=== PATIENT | female | born 2000 | race Caucasian/White ===

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

== ENCOUNTER 2022-04-05 15:52 | Outpatient (REF) | payer MEDICAID, SELFPAY | END 2022-04-05 15:53 | disposition home or self-care (01) | LOC: NCHCN 15:52 | PROVIDERS: Visit Provider Nurse Practitioner Family | DX: R31.9 Hematuria, unspecified (principal) | CPT/HCPCS: 87086 ==

== ENCOUNTER 2022-05-27 15:50 | Outpatient (REF) | payer MEDICAID, SELFPAY | END 2022-05-27 15:51 | disposition home or self-care (01) | LOC: NCHCN 15:50 | PROVIDERS: Visit Provider Nurse Practitioner Family | DX: R35.0 Frequency of micturition (principal) | CPT/HCPCS: 87086 ==

== ENCOUNTER 2022-07-03 18:08 | Emergency (ER) | payer MEDICAID, SELFPAY ==
[2022-07-03 18:13] VITALS: BP 117/77; PULSE 79; RESP 14; TEMP 36.6; O2SAT 98
[2022-07-03] MEDS: Fluorescein STRIPS 100/BOX 1 MG OP (18:30)
[2022-07-03] MEDS: Erythromycin Ophth Oint 3.5 GM TUBE OP (18:30)
[2022-07-03] MEDS: Balanced Salt Solution 15 ML BTL OP (18:30)
[2022-07-03 18:38] VITALS: BP 118/72; PULSE 80; RESP 14; O2SAT 98
--- NOTE | 2022-07-03 18:38 | W.ED.GENAD ---
Discharge Plan Disposition Patient Disposition: Home Condition: Improving Discharge Details Clinical Impression: Abrasion of right cornea Primary Care Provider: Mica Galloway ED Provider: Don Casanova Home Meds and New Rx's Prescriptions: Continued Nexplanon 68 mg implant 1 implant SBD ONCE Rx Instructions: as a single dose Women's Multivitamin 18 mg-400 mcg- 500 mg-50 mcg tablet 1 tab PO DAILY ibuprofen 400 MG tablet 1 tab PO Q8H PRN Qty: 90 cholecalciferol (vitamin D3) 125 mcg (5,000 unit) capsule 5,000 unit PO DAILY Qty: 90 2RF cetirizine [Zyrtec] 10 mg tablet 10 mg PO DAILY Qty: 60 3RF cyproheptadine 4 mg tablet 4 mg PO DAILY Qty: 30 0RF Discharge Instructions Instructions: Corneal Abrasion (ED) Additional Instructions: Erythromycin to both eyes 4-5 times daily for the next 5 days. May apply cool compress to area to reduce discomfort. Avoid further use of multidose vials of eyedrops, and avoid use of eyedrops such as Visine that reduce redness as they can cause a rebound effect. Tylenol and ibuprofen as needed for pain. You have a curvilinear corneal abrasion of the right lower cornea outside your axis of vision. This should continue to heal quickly with the use of the erythromycin and cold compresses at home. Return for any acute concerns. Medical Decision Making 21-year-old female presents from home stating she has had eye irritation since having false eyelashes placed. She particularly feels irritation in the right lower eye. No change to vision, she is otherwise been well. On exam the patient has a curvilinear corneal abrasion of the right inferior cornea, outside the axis of vision. Negative Humphrey's sign. Left eye unremarkable. This is consistent with corneal abrasion from the pad that was placed on her lower eyelid during the placement of the false eyelashes. We will treat with erythromycin ointment and conservative measures at home. The patient is stable and appropriate for discharge. HPI General Mode of arrival: ambulatory. Date/Time Provider Initiated Documentation: 07/03/22 18:08. Limitations to Documentation: no limitations. Information obtained by: patient. History of Present Illness 21 year old F presents to the emergency department with the chief complaint of Irritated eyes, right greater than left, described as moderate, and is localized to the eyes, left and right. Patient reports no radiation. Patient started experiencing this day(s) and it has been constant. No relieving factors improve symptom(s), No exacerbating factors reported . Patient notes denies fever/chills, headaches and nausea/vomiting. Patient did receive the following treatments prior to arrival, none Related Data Home Medications Medication Instructions Recorded Confirmed ibuprofen 400 mg tablet 1 tab PO Q8H PRN #90 tabs 06/28/16 07/03/22 etonogestrel 68 mg subdermal 1 implant subdermal ONCE 11/19/19 07/03/22 implant (Nexplanon) [id number] 18 mg-FA 400 1 tab PO DAILY 11/19/19 07/03/22 mcg-calcium 500 mg-vit K 50 mcg tablet (Women's Multivitamin) cholecalciferol (vitamin D3) 125 5,000 unit PO DAILY #90 caps 11/16/20 07/03/22 mcg (5,000 unit) capsule cetirizine 10 mg tablet (Zyrtec) 10 mg PO DAILY #60 tab-caps 07/14/21 07/03/22 cyproheptadine 4 mg tablet 4 mg PO DAILY #30 tabs 08/02/21 07/03/22 Previous Rx's Medication Instructions Recorded cholecalciferol (vitamin D3) 125 5,000 unit PO DAILY #90 caps 11/16/20 mcg (5,000 unit) capsule cetirizine 10 mg tablet (Zyrtec) 10 mg PO DAILY #60 tab-caps 07/14/21 cyproheptadine 4 mg tablet 4 mg PO DAILY #30 tabs 08/02/21 Allergies Allergy/AdvReac Type Severity Reaction Status Date / Time atomoxetine HCl AdvReac Intermediate agressive Verified 07/03/22 18:28 [From [facility]] General Stated Complaint: EyeProblem GABRIELLA: 4 Review of Systems Narrative: No change to vision. No other injury. Otherwise healthy PFSH All Active Problems (Updated 07/03/22 @ 18:41 by Don Casanova MD) Abrasion of right cornea (Acute) COVID-19 (Acute 03/09/21) Hypertrophic scar (Acute) Keloid (Acute) inside of left nare where nose ring was placed Vitamin D deficiency (Acute) 18.9 06/26 rx vit d 3 5000 units daily Routine child health exam (Acute 08/15/12) Learning problem (Acute 04/25/16) IEP Attention deficit hyperactivity disorder (Acute 08/15/12) Medical History Attention deficit hyperactivity disorder Oppositional disorder of childhood or adolescence Problems with learning IEP Surgical History Acute appendicitis Appendectomy (08/13/17) Family History Mother , elavil overdose Substance abuse Mental disorder Father Substance abuse Heart disease Neoplasm Grandparent Diabetes Hearing loss childhood Essential hypertension Heart disease Social History Smoking/Tobacco Use Status: Never Second Hand Exposure: No Smoking risk assessment performed?: Yes Alcohol Intake: never Drug use: Never Substance use type: does not use Household members: family Education Level: high school Details: Just graduated at [employer], contemplating nursing school, wants to work Pets and animals: No Do you feel safe in your relationship?: Yes Exam Narrative Exam Narrative: GEN: awake, alert, oriented 3. Pleasant, well groomed, interactive. HEAD: Normocephalic, atraumatic ENT: Mucous membranes moist, oropharynx unremarkable, External ear exam unremarkable EYES: PERRL, EOMI, slight conjunctival injection left, right lower conjunctiva is injected. See nursing note for visual acuity. Under fluorescein exam there is corneal abrasion right eye inferior, negative Humphrey sign, no foreign object. Left eye fluorescein exam unremarkable. NECK: Full ROM, no SAVAGE, no menigismus CHEST/RESP no respiratory distress Neuro: Grossly normal neurologic exam, conversant, interactive. Psych: Speech fluent, thoughts congruent, affect normal Course Vital Signs Vital signs: Vital Signs Temperature 36.6 C 07/03/22 18:13 Pulse 79 07/03/22 18:13 Respiratory Rate 14 07/03/22 18:13 Blood Pressure 117/77 07/03/22 18:13 Pulse Oximetry 98 07/03/22 18:13 Temperature 36.6 C 07/03/22 18:13 Temperature Source Tympanic 07/03/22 18:13 Pulse 79 07/03/22 18:13 Respiratory Rate 14 07/03/22 18:13 Respiratory Effort Normal, Non-Labored 07/03/22 18:25 Blood Pressure 117/77 07/03/22 18:13 Blood Pressure Position Sitting 07/03/22 18:13 Pulse Oximetry 98 07/03/22 18:13 Oxygen Delivery Method Room Air 07/03/22 18:13 Oxygen Flow Rate 0 07/03/22 18:13 Pain Level 3 07/03/22 18:13
== END 2022-07-03 18:47 | disposition home or self-care (01) ==
PROVIDERS: Emergency Provider Emergency Medicine; PCP Nurse Practitioner Family
DX: S05.01XA Injury of conjunctiva and corneal abrasion without foreign body, right eye, initial encounter (principal); X58.XXXA Exposure to other specified factors, initial encounter
CPT/HCPCS: 99283

== ENCOUNTER 2023-04-06 15:51 | Outpatient (REF) | payer BC, SELFPAY ==
[2023-04-06 18:26] LABS: Abs Immature Grans 0.01 10^3/uL (0.0-0.06); Absolute Basophil Count 0.05 10^3/uL (0.0-0.2); Absolute Eosinophil Count 0.13 10^3/uL (0.0-0.7); Absolute Lymphocyte Count 2.47 10^3/uL (1.2-3.4); Absolute Monocyte Count 0.49 10^3/uL (0.1-0.8); Absolute Neutrophil Count 5.22 10^3/uL (1.2-6.7); Basophils % 0.6; Eosinophils % 1.6; HGB 14.7 g/dL (11.2-15.7); Immature Grans % 0.1; Lymphocytes % 29.5; MCH 29.6 pg (27.0-33.0); MCV 85 fL (80-95); Monocytes % 5.9; Neutrophils % 62.3; Platelet Count 311 10^3/uL (130-400); RBC 4.97 10^6/uL (3.93-5.22); RDW 12.4 % (11.7-14.6); RDW-SD 37.6 fL; WBC 8.37 10^3/uL (4.4-10.8)
[2023-04-06 19:09] LABS: Vitamin D 25 Total 40.9 ng/mL (30-100)
[2023-04-06 19:12] LABS: ALT 25 U/L (14-59); AST 22 U/L (15-37); Albumin 3.7 g/dL (3.4-5.0); Alkaline Phosphatase 76 U/L (46-116); Anion Gap 7.4 mmol/L (3-11); BUN 18 mg/dL (7-18); Bilirubin, Total 0.2 mg/dL (0.2-1.0); CO2 26.6 mmol/L (21.0-32.0); CREATININE 0.9 mg/dL (0.55-1.02); Calcium 9.4 mg/dL (8.5-10.1); Chloride 104 mmol/L (98-107); Estimated GFR 93.86 (mL/min/1.73m2); Folate 9.3 ng/mL (8.6-20.0); Glucose 92 mg/dL (74-106); Sodium 138 mmol/L (136-145); Total Protein 7.7 g/dL (6.4-8.2); Vitamin B12 490 pg/mL (193-986)
== END 2023-04-06 15:52 | disposition home or self-care (01) ==
LOC: NCHCN 15:51
PROVIDERS: PCP Nurse Practitioner Family; Visit Provider Nurse Practitioner Family
DX: R53.83 Other fatigue (principal)
CPT/HCPCS: 80053; 82306; 82607; 82746; 85025

== ENCOUNTER 2023-11-06 16:45 | Outpatient (REF) | payer BC, SELFPAY ==
[2023-11-06 19:08] LABS: Bilirubin Negative (Negative); Blood Negative (Negative); Clarity Clear (Clear); Glucose Negative (Negative); Ketones Negative (Negative); Leukocyte Esterase Moderate (Negative); Nitrite Negative (Negative); Specific Gravity 1.015 (1.005-1.025); Urobilinogen 0.2 mg/dL (Up to 0.2); pH 6.5 (5-8)
[2023-11-06 19:27] LABS: Bacteria Few HPF (Negative); C & S Indicated? Yes; Casts Negative LPF (Negative); Crystals Negative HPF (Negative); Epithelial Cells Rare HPF (Negative); Mucus Negative (Negative); RBC 0-2 HPF (0-2); WBC 20-50 HPF (0-5)
== END 2023-11-06 16:46 | disposition home or self-care (01) ==
LOC: NCHCN 16:45
PROVIDERS: Visit Provider Nurse Practitioner Family
DX: R39.89 Other symptoms and signs involving the genitourinary system (principal); R82.998 Other abnormal findings in urine
CPT/HCPCS: 87077; 81003; 81015; 87086; 87186

== ENCOUNTER 2023-11-10 09:35 | Emergency (ER) | payer BC, SELFPAY ==
[2023-11-10 09:45] VITALS: BP 113/80; PULSE 95; RESP 20; TEMP 36.3; O2SAT 97
--- NOTE | 2023-11-10 10:46 | ED.GENADUL_ITS ---
Discharge Plan Disposition Patient Disposition: Home Condition: Stable Discharge Details Clinical Impression: Bacterial vaginitis, Urinary tract infection Primary Care Provider: Unknown,Unknown ED Provider: José Luis Du Home Meds and New Rx's Prescriptions: New cefpodoxime 200 mg tablet 200 mg PO BID 10 Days Qty: 20 0RF Rx Instructions: must administer with a meal/food Continued Nexplanon 68 mg implant 1 implant SBD ONCE Rx Instructions: as a single dose Women's Multivitamin 18 mg-400 mcg- 500 mg-50 mcg tablet 1 tab PO DAILY ibuprofen 400 MG tablet 1 tab PO Q8H PRN Qty: 90 cholecalciferol (vitamin D3) 125 mcg (5,000 unit) capsule 5,000 unit PO DAILY Qty: 90 2RF cetirizine [Zyrtec] 10 mg tablet 10 mg PO DAILY Qty: 60 3RF cyproheptadine 4 mg tablet 4 mg PO DAILY Qty: 30 0RF nitrofurantoin 100 mg capsule 100 mg PO BID Rx Instructions: must administer with a meal/food Probiotic 3 billion cell capsule 3,000 mmu cells PO DAILY Rx Instructions: administer with a meal Discharge Instructions Instructions: Urinary tract infections in adults, Cefpodoxime, Bacterial Vaginosis ED Additional Instructions: You were seen in the emergency department for your continued dysuria and discomfort with urination. Your urine shows that you still have a UTI. One of your vaginal swab showed bacterial vaginosis, we treated this with a one-time pill of metronidazole here in the emergency department. I do recommend that you fill the antibiotics that I have sent for you called cefpodoxime to continue to treat UTI as you could have 2 different infections. We covered you for other sexually transmitted infections empirically with one-time treatment here in the emergency department, I have sent out HSV testing though your labial lesion does not appear to be herpetic in nature. I have sent out a syphilis test as well as HIV testing. Please return to the ED for severe increase in pain, flank pain with fever and nausea and weakness, increasing discharge, severe pelvic pain, vaginal bleeding not during menstrual cycle. Referrals: [facility] [Provider Group] Discharge Data Discharge Date/Time-TO BE ENTERED AT DEPARTURE: 11/10/23 14:40 HPI General Date/Time Provider Initiated Documentation: 11/10/23 09:52 . HPI Narrative: 23 year-old female presents to ED today by POV/ambulating with a chief complaint of dysuria, clear vaginal discharge- diagnosed with UTI last week- tried cephalexin but was switched to macrobid for staph saphrophyiticus UTI- not improving, worsening flank pain with onset over the past week-week and a half. Patient is sexually active with two partners. Quality described as clear non- foul smelling discharge, discomfort and burning with urination, flank pain, no radiation to fever, decrease in urine output, nausea/vomiting, tachycardia, vaginal bleeding. Severity is described as moderate. Palliating factors include multiple ABX without relief. Provoking factors include nothing specific. Patient not anticoagulated. Related Data Home Medications ?Medication ?Instructions ?Recorded ?Confirmed ibuprofen 400 mg tablet 1 tab PO Q8H PRN #90 tabs 06/28/16 11/10/23 etonogestrel 68 mg subdermal 1 implant subdermal ONCE 11/19/19 11/10/23 implant (Nexplanon) [id number] 18 mg-FA 400 1 tab PO DAILY 11/19/19 11/10/23 mcg-calcium 500 mg-vit K 50 mcg tablet (Women's Multivitamin) cholecalciferol (vitamin D3) 125 5,000 unit PO DAILY #90 caps 11/16/20 11/10/23 mcg (5,000 unit) capsule cetirizine 10 mg tablet (Zyrtec) 10 mg PO DAILY #60 tab-caps 07/14/21 11/10/23 cyproheptadine 4 mg tablet 4 mg PO DAILY #30 tabs 08/02/21 11/10/23 cefpodoxime 200 mg tablet 200 mg PO BID UTI 10 days #20 tabs 11/10/23 lactobacillus combination no.4 3 3,000 mmu cells PO DAILY 11/10/23 11/10/23 billion cell capsule (Probiotic) nitrofurantoin 100 mg capsule 100 mg PO BID 11/10/23 11/10/23 Previous Rx's ?Medication ?Instructions ?Recorded cholecalciferol (vitamin D3) 125 5,000 unit PO DAILY #90 caps 11/16/20 mcg (5,000 unit) capsule cetirizine 10 mg tablet (Zyrtec) 10 mg PO DAILY #60 tab-caps 07/14/21 cyproheptadine 4 mg tablet 4 mg PO DAILY #30 tabs 08/02/21 cefpodoxime 200 mg tablet 200 mg PO BID UTI 10 days #20 tabs 11/10/23 Allergies Allergy/AdvReac Type Severity Reaction Status Date / Time atomoxetine HCl (From AdvReac Intermediate agressive Verified 11/10/23 09:49 Strattera) General Stated Complaint: Urinary GABRIELLA: 3 Review of Systems All systems reviewed & are unremarkable except as noted in HPI and below Exam Narrative Exam Narrative: GENERAL APPEARANCE: Well-nourished, non-toxic, awake and alert, atraumatic, no acute distress. SKIN: Warm, pink, dry, intact, without rashes/lesions/ulcerations. HEAD: Normocephalic, atraumatic, normal hair distribution for gender/age. EYES: Normal conjunctiva, no exudates on lids/lashes. ENT: Nares patent, no circumoral cyanosis, no facial swelling NECK: Supple, trachea midline, painless cervical ROM. LUNGS/CHEST: Lungs CTA bilaterally, non-labored respirations, normal A/P diameter, symmetrical expansion, no chest wall deformity HEART (CV/PV): Regular rate and rhythm without murmur, no peripheral edema, no JVD. ABDOMEN: Soft, non-distended, no guarding, mild lower abdominal discomfort - pelvic exam deferred by patient preference. MSK: Normal ROM, no swelling/deformity to bilateral UEs or LEs, moving all extremities without weakness, no cyanosis, spine midline without tenderness, normal curvature. NEURO: Mental Status AAOx4 - alert to person, place, time, events No facial droop, no forehead involvement. Motor: No focal weakness - strength 5/5 in bilateral UEs and LEs, proximal and distal, symmetric. Sensory: sensation intact to light touch globally. Gait normal: patient ambulated without ataxia into ED room. PSYCH: euthymic, cooperative, pleasant, appropriate speech Course Vital Signs Vital signs: Vital Signs Temperature 36.3 C L 11/10/23 09:45 Pulse 95 H 11/10/23 09:45 Respiratory Rate 20 11/10/23 09:45 Blood Pressure 113/80 11/10/23 09:45 Pulse Oximetry 97 11/10/23 09:45 Temperature 36.3 C L 11/10/23 09:45 Temperature Source Skin 11/10/23 09:45 Pulse 95 H 11/10/23 09:45 Respiratory Rate 20 11/10/23 09:45 Blood Pressure 113/80 11/10/23 09:45 Blood Pressure Position Sitting 11/10/23 09:45 Pulse Oximetry 97 11/10/23 09:45 Oxygen Delivery Method Room Air 11/10/23 09:45 Oxygen Flow Rate 0 11/10/23 09:45 Medical Decision Making This dictation utilizes [id number] dictation software and may contain unedited grammatical errors. 23 year-old female presents to ED today by POV/ambulating with a chief complaint of dysuria, clear vaginal discharge- diagnosed with UTI last week- tried cephalexin but was switched to macrobid for staph saphrophyiticus UTI- not improving, worsening flank pain with onset over the past week-week and a half. Patient is sexually active with two partners. Quality described as clear non- foul smelling discharge, discomfort and burning with urination, flank pain, no radiation to fever, decrease in urine output, nausea/vomiting, tachycardia, vaginal bleeding. Severity is described as moderate. Palliating factors include multiple ABX without relief. Provoking factors include nothing specific. Patients' medical history: Noncontributory. Family and social history: Noncontributory. Pertinent exam findings / vital signs include mild lower abdominal tenderness, otherwise unremarkable exam, benign cardiopulmonary status. Differential / pathologies of concern include STI, vaginitis, UTI, pyelonephritis. Diagnostic studies of: -UA, Vag pathogen Screen, NG/GC (send-out), HIV Rapid Ab, RPR (send-out), HSV PCR (send-out). -vag path shows BV, UA shows UTI still persistent- will cover for pyelo Interventions of: -empiric one-time STD treatment of IM Ceftriaxone, single dose azith and metronidazole. ED Course/Assessment/Plan: Counseled the patient on possibility of STI as she has multiple sex partners, discussed one-time empiric treatment for STDs which the patient opted for, this will cover patient's BV with likely high-dose metronidazole, I did start her on cefpodoxime going forward as she has failed 2 antibiotics for her UTI and has flank pain covering for pyelonephritis. Stressed strict return criteria for any worsening flank pain especially fever, nausea or weakness or other systemic symptoms. Findings not consistent with sepsis, acute emergent abdominal pathology. Disposition of bacterial vaginitis, urinary tract infection. Patient verbalized understanding of the plan and return to ED criteria and engaged in shared decision making. Medical Records Medical records reviewed: Yes I reviewed the patient's medical records. Lab Data Lab results reviewed: Yes I reviewed the patient's lab results. Labs: 11/10/23 12:40 Vaginal Vaginitis Screen - Final Laboratory Tests Range/Units 11/10/23 11/10/23 10:22 12:24 Urine Color (Yellow) Dark Yellow Urine Clarity (Clear) Clear Urine pH (5-8) 6.0 Ur Specific [place] (1.005-1.025) 1.025 Urine Protein (Neg-Trace) mg/dL Trace Urine Ketones (Negative) mg/dL 80 H Urine Blood (Negative) Negative Urine Nitrite (Negative) Positive H Urine Bilirubin (Negative) Small H Urine Urobilinogen (Up to 0.2) mg/dL 1.0 H Ur Leukocyte Esterase (Negative) Negative Urine RBC (0-2) HPF Negative Urine WBC (0-5) HPF 3-5 Ur Epithelial Cells (Negative) HPF Rare Urine Crystals (Negative) HPF Negative Urine Bacteria (Negative) HPF Few Urine Casts (Negative) LPF Negative Urine Mucus (Negative) Moderate Urine Other (Negative) Negative Ur Culture Indicated? No Urine Glucose (Negative) mg/dL Negative HIV 1&2 Ag/Ab, 4th Gen Cancelled HIV 1&2 Antibody Rapid Cancelled Quality:SDOH Health Related Social Needs: No Data to Display PFSH All Active Problems (Updated 11/11/23 @ 23:26 by IZABELA Sosa) Fever (Acute) Urinary tract infection (Acute) Bacterial vaginitis (Acute) COVID-19 (Acute 03/09/21) Hypertrophic scar (Acute) Keloid (Acute) inside of left nare where nose ring was placed Vitamin D deficiency (Acute) 18.9 06/26 rx vit d 3 5000 units daily Routine child health exam (Acute 08/15/12) Learning problem (Acute 04/25/16) IEP Attention deficit hyperactivity disorder (Acute 08/15/12) Medical History Attention deficit hyperactivity disorder Oppositional disorder of childhood or adolescence Problems with learning IEP Surgical History Acute appendicitis Appendectomy (08/13/17) Family History Mother , elavil overdose Substance abuse Mental disorder Father Substance abuse Heart disease Neoplasm Grandparent Diabetes Hearing loss childhood Essential hypertension Heart disease Social History Smoking/Tobacco Use Status: Never Second Hand Exposure: No Smoking risk assessment performed?: Yes Alcohol Intake: never Drug use: Never Substance use type: does not use Household members: family Education Level: high school Details: Just graduated at [employer], contemplating nursing school, wants to work Pets and animals: No Do you feel safe in your relationship?: Yes
[2023-11-10 11:16] VITALS: BP 108/75; PULSE 89; RESP 18; TEMP 36.8; O2SAT 98
[2023-11-10 12:25] VITALS: BP 120/69; PULSE 102; RESP 16; TEMP 36.8; O2SAT 98
[2023-11-10 12:59] LABS: Bilirubin Small (Negative); Blood Negative (Negative); Clarity Clear (Clear); Glucose Negative (Negative); Ketones 80 mg/dL (Negative); Leukocyte Esterase Negative (Negative); Nitrite Positive (Negative); Specific Gravity 1.025 (1.005-1.025)
[2023-11-10 13:14] LABS: Bacteria Few HPF (Negative); C & S Indicated? No; Casts Negative LPF (Negative); Crystals Negative HPF (Negative); Epithelial Cells Rare HPF (Negative); Mucus Moderate (Negative); Other Cells Negative (Negative); RBC Negative HPF (0-2)
[2023-11-10] MEDS: metroNIDAZOLE 500 MG TAB 2000 MG PO (14:00)
[2023-11-10] MEDS: cefTRIAXone 500 MG VIAL IM (14:00)
[2023-11-10] MEDS: Azithromycin 250 MG TAB 1000 MG PO (14:00)
[2023-11-10 14:32] VITALS: BP 120/69; PULSE 102; RESP 16; TEMP 36.8; O2SAT 98
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
[2023-11-12 09:20] LABS: HIV-1/2 Ag & Ab Screen Negative (Negative)
[2023-11-13 12:09] LABS: Chlamydia Result Negative (Negative); GC Result Negative (Negative)
[2023-11-13 13:48] LABS: Syphilis Serology (RPR) Negative (Negative)
[2023-11-13 21:17] LABS: HSV 1 PCR, B Negative (Negative); HSV 2 PCR, B Negative (Negative)
== END 2023-11-10 14:40 | disposition home or self-care (01) ==
PROVIDERS: Emergency Provider Physician Assistant
DX: N39.0 Urinary tract infection, site not specified (principal); N76.0 Acute vaginitis
CPT/HCPCS: 36415; 87389; 87491; 87529; 87591; 96372; 99284; 81003; 81015; 86592; 87480; 87510; 87660; 99283; J0696

== ENCOUNTER 2023-11-11 19:56 | Emergency (ER) | payer BC, SELFPAY ==
[2023-11-11 20:05] VITALS: BP 130/81; PULSE 120; RESP 14; TEMP 36.9; O2SAT 98
[2023-11-11 20:54] VITALS: BP 124/78; PULSE 118; TEMP 36.3; O2SAT 98
--- NOTE | 2023-11-11 21:00 | DI.RAD_ITS ---
Exam(s) XR CHEST 2V PA LATERAL EXAM: XR CHEST 2V PA LATERAL CLINICAL HISTORY: fever TECHNIQUE: 2D digital imaging was performed. Two views. COMPARISON: No exams were available for comparison FINDINGS: HEART: Normal size. Aorta: Not dilated. PULMONARY VASCULATURE: Normal. MEDIASTINUM: Unremarkable. LUNGS: Clear. PLEURAL SPACE: No pleural effusion or pneumothorax. BONE:Unremarkable for age. SOFT TISSUES: Unremarkable. IMPRESSION: No acute abnormality. DATA REPOSITORY: RADIATION DOSE DELIVERED:
--- NOTE | 2023-11-11 21:07 | DI.CT_ITS ---
Exam(s) CT ABDOMEN PELVIS W EXAM: CT ABDOMEN PELVIS W CLINICAL HISTORY: dyuria, persistent fever. TECHNIQUE: Imaging Protocol: Axial computed tomography images with coronal and sagittal reformatted images were created and reviewed CONTRAST MATERIAL: Intravenous: Omnipaque 350 Contrast volume:100 ml Oral: no COMPARISON: CT ABD PELVIS WITH CONTRAST from 08/13/2017 FINDINGS: ABDOMEN and PELVIS: Lung Bases: No acute findings. Liver: Normal density. No suspicious mass. Gallbladder and biliary tract: Somewhat contracted. Not well evaluated. No wall thickening. No mounika iary dilation. Pancreas: Normal density. No abnormal calcifications or inflammatory process. No evidence of mass. Spleen: Normal. Kidneys: Normal size, contour and axis. No radiodense stones. No obstructive uropathy. No suspicious masses seen. Question of an area of hypoperfusion at the upper pole left kidney which could represen t focal pyelonephritis. The kidneys otherwise show normal for fusion. Adrenal glands: No masses seen. Vasculature: Abdominal aorta non-dilated. Soft tissues: Unremarkable. Bladder: No gross wall thickening. No calculi.No focal mass. Bowel: No obstruction. No bowel wall thickening. Status post appendectomy. Peritoneal cavity: No ascites. No focal collection. No mesenteric inflammatory response. Bones: Unremarkable for age. Reproductive organs: Unremarkable. Lymph nodes: Mildly enlarged mesenteric lymph nodes, consistent with reactive lymph nodes. No pathol ogically enlarged lymph nodes. IMPRESSION:: Question of a small area of patchy low density at the upper pole of the left kidney whi ch could indicate an area of focal pyelonephritis. RADIATION DOSE DELIVERED: Total DLP DATA REPOSITORY: All CT scans at this facility are submitted to the National Radiology Data Registry (NRDR) Dose Index Registry (DIR) with the [employer] (ACR). RADIATION OPTIMIZATION: All CT scans at this facility use at least one of these dose optimization te chniques: automated exposure control; mA and/or kV adjustment per patient size (includes targeted exa ms where dose is matched to clinical indication); or iterative reconstruction.
[2023-11-11 21:16] LABS: Abs Immature Grans 0.02 10^3/uL (0.0-0.06); Absolute Basophil Count 0.04 10^3/uL (0.0-0.2); Absolute Eosinophil Count 0.04 10^3/uL (0.0-0.7); Absolute Lymphocyte Count 1.58 10^3/uL (1.2-3.4); Absolute Monocyte Count 0.42 10^3/uL (0.1-0.8); Absolute Neutrophil Count 3.65 10^3/uL (1.2-6.7); Basophils % 0.7 %; Eosinophils % 0.7 %; HCT 42.7 % (36.0-46.0); HGB 14.9 g/dL (11.2-15.7); Immature Grans % 0.3 %; Lymphocytes % 27.5 %; MCHC 34.9 % (32.0-36.0); MCV 83 fL (80-95); MPV 9.4 fL (8.0-11.0); Monocytes % 7.3 %; Neutrophils % 63.5 %; Platelet Count 226 10^3/uL (130-400); RBC 5.13 10^6/uL (3.93-5.22); RDW 11.6 % (11.7-14.6); RDW-SD 34.9 fL; WBC 5.75 10^3/uL (4.4-10.8)
[2023-11-11 21:33] LABS: ALT 30 U/L (14-59); AST 22 U/L (15-37); Albumin 3.9 g/dL (3.4-5.0); Alkaline Phosphatase 79 U/L (46-116); Anion Gap 11.7 mmol/L (3-11); BUN 12 mg/dL (7-18); Bilirubin, Total 0.42 mg/dL (0.2-1.0); CO2 25.3 mmol/L (21.0-32.0); Calcium 9.3 mg/dL (8.5-10.1); Chloride 100 mmol/L (98-107); Glucose 132 mg/dL (74-106); Potassium 3.2 mmol/L (3.5-5.1); Sodium 137 mmol/L (136-145); Total Protein 8.6 g/dL (6.4-8.2)
[2023-11-11] MEDS: Normal Saline 1,000 ML 1000 ML IV (21:54)
[2023-11-11 22:06] LABS: COVID-19 PCR Negative (Negative); Influenza A PCR Negative (Negative); Influenza B PCR Negative (Negative); RSV PCR Negative (Negative)
[2023-11-11 22:07] LABS: Source Nasopharynx
[2023-11-11] MEDS: Omnipaque 350 MG/ML 100 ML BTL IJ (22:13)
[2023-11-11] MEDS: Normal Saline - Diluent 50 ML VIAL IJ (22:13)
[2023-11-11 22:49] LABS: Bilirubin Negative (Negative); Blood Trace-intact (Negative); Clarity Clear (Clear); Glucose Negative (Negative); Ketones 40 mg/dL (Negative); Leukocyte Esterase Negative (Negative); Nitrite Negative (Negative); Urobilinogen 0.2 mg/dL (Up to 0.2)
[2023-11-11 22:53] LABS: Bacteria Rare HPF (Negative); C & S Indicated? No; Casts Negative LPF (Negative); Crystals Negative HPF (Negative); Epithelial Cells Rare HPF (Negative); Mucus Negative (Negative); RBC 0-2 HPF (0-2); WBC Negative HPF (0-5)
--- NOTE | 2023-11-11 23:23 | ED.GENADUL_ITS ---
Discharge Plan Disposition Patient Disposition: Home Condition: Stable Discharge Details Clinical Impression: Urinary tract infection, Fever Primary Care Provider: None,None ED Provider: Lesvia Ruvalcaba Home Meds and New Rx's Prescriptions: Continued Nexplanon 68 mg implant 1 implant SBD ONCE Rx Instructions: as a single dose Women's Multivitamin 18 mg-400 mcg- 500 mg-50 mcg tablet 1 tab PO DAILY ibuprofen 400 MG tablet 1 tab PO Q8H PRN Qty: 90 cholecalciferol (vitamin D3) 125 mcg (5,000 unit) capsule 5,000 unit PO DAILY Qty: 90 2RF cetirizine [Zyrtec] 10 mg tablet 10 mg PO DAILY Qty: 60 3RF cyproheptadine 4 mg tablet 4 mg PO DAILY Qty: 30 0RF nitrofurantoin 100 mg capsule 100 mg PO BID Rx Instructions: must administer with a meal/food Probiotic 3 billion cell capsule 3,000 mmu cells PO DAILY Rx Instructions: administer with a meal cefpodoxime 200 mg tablet 200 mg PO BID 10 Days Qty: 20 0RF Rx Instructions: must administer with a meal/food Discharge Instructions Instructions: Urinary tract infections in adults, Fever, Adult (DC) Additional Instructions: Please continue on your antibiotic, yogurt daily while on antibiotics Follow-up with your primary care physician on Monday and return earlier should you have new or worsening complaints, your tests today are reassuring including her chest x-ray Stand Alone Forms: Work Release Discharge Data Discharge Date/Time-TO BE ENTERED AT DEPARTURE: 11/12/23 00:25 HPI General Date/Time Provider Initiated Documentation: 11/11/23 20:12 . HPI Narrative: This otherwise healthy 23-year-old female presents with report of recent diagnosis of urinary tract infection currently taking cefpodoxime and treated empirically for STDs yesterday. States she has had persistent dysuria and persistent fevers, temps ranging from 10 1-1 03 she is why she presents. She started on the cefpodoxime yesterday but was on another antibiotic which she started on Monday of this week. She states that she is not feeling significantl y improved. She has any nausea or vomiting or chance of . Patient is sexually active and monogamous for patient. Denies known tick bites. Related Data Home Medications ?Medication ?Instructions ?Recorded ?Confirmed ibuprofen 400 mg tablet 1 tab PO Q8H PRN #90 tabs 06/28/16 11/10/23 etonogestrel 68 mg subdermal 1 implant subdermal ONCE 11/19/19 11/10/23 implant (Nexplanon) [id number] 18 mg-FA 400 1 tab PO DAILY 11/19/19 11/10/23 mcg-calcium 500 mg-vit K 50 mcg tablet (Women's Multivitamin) cholecalciferol (vitamin D3) 125 5,000 unit PO DAILY #90 caps 11/16/20 11/10/23 mcg (5,000 unit) capsule cetirizine 10 mg tablet (Zyrtec) 10 mg PO DAILY #60 tab-caps 07/14/21 11/10/23 cyproheptadine 4 mg tablet 4 mg PO DAILY #30 tabs 08/02/21 11/10/23 cefpodoxime 200 mg tablet 200 mg PO BID UTI 10 days #20 tabs 11/10/23 lactobacillus combination no.4 3 3,000 mmu cells PO DAILY 11/10/23 11/10/23 billion cell capsule (Probiotic) nitrofurantoin 100 mg capsule 100 mg PO BID 11/10/23 11/10/23 Previous Rx's ?Medication ?Instructions ?Recorded cholecalciferol (vitamin D3) 125 5,000 unit PO DAILY #90 caps 11/16/20 mcg (5,000 unit) capsule cetirizine 10 mg tablet (Zyrtec) 10 mg PO DAILY #60 tab-caps 07/14/21 cyproheptadine 4 mg tablet 4 mg PO DAILY #30 tabs 08/02/21 cefpodoxime 200 mg tablet 200 mg PO BID UTI 10 days #20 tabs 11/10/23 Allergies Allergy/AdvReac Type Severity Reaction Status Date / Time atomoxetine HCl (From AdvReac Intermediate agressive Verified 11/10/23 09:49 Strattera) General Stated Complaint: Urinary GABRIELLA: 3 Exam Const General: healthy appearing, comfortable and no acute distress [facility] Head: normal to inspection Eyes Pupils: PERRL Neck Other: no meningismus Resp Effort & Inspection: normal respiratory effort Auscultation: clear to auscultation bilaterally Cardio Rate: regular rate Rhythm: regular rhythm GI Inspection: normal to inspection Other: no cva tenderness , nontender abdominal exam Skin General skin exam: no rashes or lesions noted Neuro General: patient alert and patient oriented x3 Course Vital Signs Vital signs: Vital Signs Temperature 36.9 C 11/11/23 20:05 Pulse 120 H 11/11/23 20:05 Respiratory Rate 14 11/11/23 20:05 Blood Pressure 130/81 11/11/23 20:05 Pulse Oximetry 98 11/11/23 20:05 Temperature 36.3 C L 11/11/23 20:54 Temperature Source Tympanic 11/11/23 20:54 Pulse 118 H 11/11/23 20:54 Respiratory Rate 14 11/11/23 20:05 Respiratory Effort Normal, Non-Labored 11/11/23 21:52 Blood Pressure 124/78 11/11/23 20:54 Blood Pressure Position Sitting 11/11/23 20:05 Pulse Oximetry 98 11/11/23 20:54 Oxygen Delivery Method Room Air 11/11/23 20:54 Oxygen Flow Rate 0 11/11/23 20:54 Pain Level 2 11/11/23 20:54 Lab/Test Results Lab/Test Results: 11/11/23 21:45 Blood Blood Culture - Pending 11/11/23 21:05 Blood Blood Culture - Pending Laboratory Tests Range/Units 11/11/23 11/11/23 11/11/23 20:15 21:05 21:20 WBC (4.4-10.8) 10^3/uL 5.75 RBC (3.93-5.22) 10^6/uL 5.13 Hgb (11.2-15.7) g/dL 14.9 Hct (36.0-46.0) % 42.7 MCV (80-95) fL 83 MCH (27.0-33.0) pg 29.0 MCHC (32.0-36.0) % 34.9 RDW (11.7-14.6) % 11.6 L Plt Count (130-400) 10^3/uL 226 MPV (8.0-11.0) fL 9.4 Immature Gran % % 0.3 Neutrophils % % 63.5 Lymphocytes % % 27.5 Monocytes % % 7.3 Eosinophils % % 0.7 Basophils % % 0.7 Nucleated RBC % (0.0-0.3) % 0.0 Absolute Neutrophils (1.2-6.7) 10^3/uL 3.65 Absolute Lymphocytes (1.2-3.4) 10^3/uL 1.58 Absolute Monocytes (0.1-0.8) 10^3/uL 0.42 Absolute Eosinophils (0.0-0.7) 10^3/uL 0.04 Absolute Basophils (0.0-0.2) 10^3/uL 0.04 VBG Lactate (0.6-1.4) mmol/L 1.0 Sodium (136-145) mmol/L 137 Potassium (3.5-5.1) mmol/L 3.2 L Chloride (98-107) mmol/L 100 Carbon Dioxide (21.0-32.0) mmol/L 25.3 Anion Gap (3-11) mmol/L 11.7 H BUN (7-18) mg/dL 12 Creatinine (0.55-1.02) mg/dL 1.0 Est GFR (CKD-EPI 2020) (mL/min/1.73m2) 82.20 Glucose (74-106) mg/dL 132 H Calcium (8.5-10.1) mg/dL 9.3 Total Bilirubin (0.2-1.0) mg/dL 0.42 AST (15-37) U/L 22 ALT (14-59) U/L 30 Alkaline Phosphatase (46-116) U/L 79 C-Reactive Protein (<or=0.5) mg/dL 2.20 H Total Protein (6.4-8.2) g/dL 8.6 H Albumin (3.4-5.0) g/dL 3.9 Urine Color (Yellow) Yellow Urine Clarity (Clear) Clear Urine pH (5-8) 6.0 Ur Specific [place] (1.005-1.025) 1.010 Urine Protein (Neg-Trace) mg/dL Negative Urine Ketones (Negative) mg/dL 40 H Urine Blood (Negative) Trace-intact H Urine Nitrite (Negative) Negative Urine Bilirubin (Negative) Negative Urine Urobilinogen (Up to 0.2) mg/dL 0.2 Ur Leukocyte Esterase (Negative) Negative Urine RBC (0-2) HPF 0-2 Urine WBC (0-5) HPF Negative Ur Epithelial Cells (Negative) HPF Rare Urine Crystals (Negative) HPF Negative Urine Bacteria (Negative) HPF Rare Urine Casts (Negative) LPF Negative Urine Mucus (Negative) Negative Ur Culture Indicated? No Urine Glucose (Negative) mg/dL Negative COVID-19 Source Nasopharynx SARS-CoV-2 (PCR) (Negative) Negative Influenza Type A (PCR) (Negative) Negative Influenza Type B (PCR) (Negative) Negative RSV (PCR) (Negative) Negative POC- Test(urine) Negative Medical Decision Making At this time patient is presenting with persistent fevers, will order CT abdomen and pelvis to further evaluate to be sure there is not a stone with patient's recurrent symptoms. Urinalysis is actually reassuring today, diagnostic labs does not show evidence of significant acute infection, specifically white blood cell count is within normal limits CRP is 2 which is only slightly elevated and reassuring, lactate within normal limits blood cultures are pending. Patient is on appropriate antibiotics which appears to be treating her urinary tract inf ection. She may have pyelonephritis although I suspect her symptoms will start to improve on appropriate therapy and urinalysis is reassuring. I see no clear indication for admission for IV antibiotics at this time as patient is able to tolerate p.o.return precautions reviewed and pt expressed understanding Quality:SDOH Health Related Social Needs: No Data to Display PFSH All Active Problems (Updated 11/11/23 @ 23:26 by IZABELA Sosa) Fever (Acute) Urinary tract infection (Acute) Bacterial vaginitis (Acute) COVID-19 (Acute 03/09/21) Hypertrophic scar (Acute) Keloid (Acute) inside of left nare where nose ring was placed Vitamin D deficiency (Acute) 18.9 06/26 rx vit d 3 5000 units daily Routine child health exam (Acute 08/15/12) Learning problem (Acute 04/25/16) IEP Attention deficit hyperactivity disorder (Acute 08/15/12) Medical History Attention deficit hyperactivity disorder Oppositional disorder of childhood or adolescence Problems with learning IEP Surgical History Acute appendicitis Appendectomy (08/13/17) Family History Mother , elavil overdose Substance abuse Mental disorder Father Substance abuse Heart disease Neoplasm Grandparent Diabetes Hearing loss childhood Essential hypertension Heart disease Social History Smoking/Tobacco Use Status: Never Second Hand Exposure: No Smoking risk assessment performed?: Yes Alcohol Intake: never Drug use: Never Substance use type: does not use Household members: family Education Level: high school Details: Just graduated at [employer], contemplating nursing school, wants to work Pets and animals: No Do you feel safe in your relationship?: Yes
--- NOTE | 2023-11-11 23:40 | DI.VRAD_ITS ---
PROCEDURE INFORMATION: Exam: CT Abdomen And Pelvis With Contrast Exam date and time: 11/11/2023 10:04 PM Age: 23 years old Clinical indication: Other: Dyuria, persistent fever TECHNIQUE: Imaging protocol: Computed tomography of the abdomen and pelvis with contrast. Contrast material: 350; Contrast volume: 100 ml; Contrast route: INTRAVENOUS (IV); COMPARISON: CT ABD PELVIS WITH CONTRAST 08/13/2017 4:54 PM FINDINGS: Lungs: The lungs are normal. There is no evidence of focal pulmonary consolidation. Pleural spaces: There is no evidence of pneumothorax. There are no pleural effusions present. Heart: The cardiac structures are normal. Liver: There are no focal liver lesions present. There is no evidence of intrahepatic or extrahepatic biliary ductal dilation. Gallbladder and biliary ducts: The gallbladder is contracted. There is small focal high attenuation structures present within the gallbladder lumen consistent with small gallstones these lie the neck of the gallbladder. No evidence of cholecystitis.There is no evidence of intrahepatic or extrahepatic biliary ductal dilation. Pancreas: The pancreas is normal. Spleen: The spleen is normal. Adrenal glands: The adrenal glands are normal. Kidneys and ureters: There is a subtle low-attenuation area within the superior pole of the left kidney which may represent mild and/or early pyelonephritis. The kidneys are otherwise normal. Stomach and bowel: There are diffuse fluid filled loops of small bowel and colon with scattered air fluid levels. The bowel loops are mildly distended. No associated bowel wall thickening or inflammatory changes. No evidence of obstruction. Findings most consistent with diffuse enterocolitis. There is no evidence of intestinal obstruction. No diverticulitis is present. Appendix: There has been an appendectomy. Intraperitoneal space: There is no free intraperitoneal air. There is no evidence of free intraperitoneal or pelvic fluid. There are no soft tissue masses or fluid collections. Vasculature: The aorta is normal without evidence of significant atherosclerosis or aneurysmal disease. The peripheral arterial vascular system visualized is unremarkable. The portal venous system visualized is unremarkable. The venous system visualized is unremarkable. Lymph nodes: There are enlarged nonspecific lymph nodes in the mesenteric fat. This nonspecific mesenteric adenitis can be secondary to a variety of bacterial, viral, or other inflammatory processes. . Urinary bladder: The bladder is normal. Reproductive: Low-attenuation lesion within the subserosal region of the body of the uterus may represent uterine fibroid. The uterus is otherwise. normal. The ovaries are normal. Bones/joints: The skeletal structures show no evidence of fracture or other acute processes. Soft tissues: The extra-abdominal soft tissues are normal. IMPRESSION: 1. There is a subtle low-attenuation area within the superior pole of the left kidney which may represent mild and/or early pyelonephritis. The kidneys are otherwise normal. 2. There are diffuse fluid filled loops of small bowel and colon with scattered air fluid levels. The bowel loops are mildly distended. No associated bowel wall thickening or inflammatory changes. No evidence of obstruction. Findings most consistent with diffuse enterocolitis. 3. The gallbladder is contracted. There is small focal high attenuation structures present within the gallbladder lumen consistent with small gallstones these lie the neck of the gallbladder. No evidence of cholecystitis.There is no evidence of intrahepatic or extrahepatic biliary ductal dilation. 4. There are enlarged nonspecific lymph nodes in the mesenteric fat. This nonspecific mesenteric adenitis can be secondary to a variety of bacterial, viral, or other inflammatory processes. . Dictated and Authenticated by: Soto Lehman MD. Ordering:FRANCINE Lakhani MD
--- NOTE | 2023-11-11 23:41 | DI.VRAD_ITS ---
PROCEDURE INFORMATION: Exam: XR Chest Exam date and time: 11/11/2023 10:12 PM Age: 23 years old Clinical indication: Other: Dyuria, persistent fever TECHNIQUE: Imaging protocol: Radiologic exam of the chest. Views: 2 views. COMPARISON: CT ABDOMEN PELVIS W 11/11/2023 10:04 PM FINDINGS: Lungs: There is no evidence of focal pulmonary consolidation. The pulmonary vasculature is normal. Pleural spaces: There is no evidence of pneumothorax. There are no pleural effusions present. Heart/Mediastinum: The cardiac silhouette is within normal limits. The mediastinum is normal. Bones/joints: The spine, sternum, ribs, and pectoral girdles show no evidence of acute abnormality Soft tissues: There are no soft tissue masses or calcifications. IMPRESSION: No active cardiopulmonary disease. Dictated and Authenticated by: Soto Lehman MD. Ordering:FRANCINE Lakhani MD
[2023-11-11 23:54] VITALS: PULSE 102; O2SAT 98
[2023-11-12 00:11] VITALS: BP 122/59; TEMP 37.1
[2023-11-13 10:28] LABS: Lyme Ab w Rflx to Lyme Confirm Negative (Negative)
[2023-11-14 18:02] LABS: Anaplasma phagocytophilum Negative (Negative); B. miyamotoi PCR Negative (Negative); Babesia divergens/MO-1 Negative (Negative); Babesia duncani Negative (Negative); Babesia microti Negative (Negative); Ehrlichia chaffeensis Negative (Negative); Ehrlichia ewingii/canis Negative (Negative); Ehrlichia muris eauclairensis Negative (Negative)
== END 2023-11-12 00:25 | disposition home or self-care (01) ==
PROVIDERS: Emergency Provider Physician Assistant
DX: N39.0 Urinary tract infection, site not specified (principal); R50.9 Fever, unspecified
CPT/HCPCS: 80053; 81025; 87040; 87637; 87798; 96360; 99285; 71046; 74177; 81003; 81015; 83605; 85025; 86140; 86618; 99284; J3490

== ENCOUNTER 2024-04-29 08:23 | Emergency (ER) | payer OTHER, SELFPAY ==
[2024-04-29 08:43] VITALS: BP 110/71; PULSE 91; RESP 20; TEMP 36.6; O2SAT 98
--- NOTE | 2024-04-29 08:54 | ED.GENADUL_ITS ---
Discharge Plan Disposition Patient Disposition: Home Condition: Stable Discharge Details Clinical Impression: COVID-19 Primary Care Provider: None,None ED Provider: José Luis Du Home Meds and New Rx's Prescriptions: Continued Nexplanon 68 mg implant 1 implant SBD ONCE Rx Instructions: as a single dose cholecalciferol (vitamin D3) 125 mcg (5,000 unit) capsule 5,000 unit PO DAILY Qty: 90 2RF cetirizine [Zyrtec] 10 mg tablet 10 mg PO DAILY Qty: 60 3RF cyproheptadine 4 mg tablet 4 mg PO DAILY Qty: 30 0RF Discharge Instructions Instructions: COVID-19 ED Additional Instructions: You were seen in the emergency department for your positive at home rapid COVID test, this was positive indicating you are likely contagious, you state your symptoms have come on today, your PCR is also positive which only detects in fection within the last 60 to 90 days, you need to take 5 days off of work which a note was provided for you, you are vaccinated and low risk for progression as you are young and otherwise healthy. Please take [id number] Tylenol and ibuprofen, [id number] cold medicines like Mucinex for relief, please return to the emergency department for any significant respiratory distress. Stand Alone Forms: Work Release Discharge Data Discharge Date/Time-TO BE ENTERED AT DEPARTURE: 04/29/24 10:00 HPI General Date/Time Provider Initiated Documentation: 04/29/24 08:54 . HPI Narrative: 23 year-old female presents to ED today by POV/ambulating with a chief complaint of positive rapid antigen at-home Covid test, states her work of [employer] across the street is requiring a PCR test as they state at-home tests can have false positives, with onset one day ago. Quality described as generalized malaise, cough, no radiation to chest pain, respiratory distress, nausea/vomiting. Severity is described as mild. Palliating factors include nothing specific needed. Provoking factors include nothing specific. Events leading up to the incident/Associated Symptoms: Patient is vaccinated for Covid. Patient not anticoagulated. Related Data Home Medications ?Medication ?Instructions ?Recorded ?Confirmed etonogestrel 68 mg subdermal 1 implant subdermal ONCE 11/19/19 04/29/24 implant (Nexplanon) cholecalciferol (vitamin D3) 125 5,000 unit PO DAILY #90 caps 11/16/20 04/29/24 mcg (5,000 unit) capsule cetirizine 10 mg tablet (Zyrtec) 10 mg PO DAILY #60 tab-caps 07/14/21 04/29/24 cyproheptadine 4 mg tablet 4 mg PO DAILY #30 tabs 08/02/21 04/29/24 Previous Rx's ?Medication ?Instructions ?Recorded cholecalciferol (vitamin D3) 125 5,000 unit PO DAILY #90 caps 11/16/20 mcg (5,000 unit) capsule cetirizine 10 mg tablet (Zyrtec) 10 mg PO DAILY #60 tab-caps 07/14/21 cyproheptadine 4 mg tablet 4 mg PO DAILY #30 tabs 08/02/21 Allergies Allergy/AdvReac Type Severity Reaction Status Date / Time atomoxetine HCl (From AdvReac Intermediate agressive Verified 04/29/24 08:45 Strattera) General Stated Complaint: RespSymp GABRIELLA: 4 Review of Systems All systems reviewed & are unremarkable except as noted in HPI and below Exam Narrative Exam Narrative: GENERAL APPEARANCE: Well-nourished, non-toxic, awake and alert, atraumatic, no acute distress. SKIN: Warm, pink, dry, intact, without rashes/lesions/ulcerations. HEAD: Normocephalic, atraumatic, normal hair distribution for gender/age. EYES: Normal conjunctiva, no exudates on lids/lashes. ENT: Nares patent, no circumoral cyanosis, no facial swelling NECK: Supple, trachea midline, painless cervical ROM. LUNGS/CHEST: Lungs CTA bilaterally, non-labored respirations, normal A/P diameter, symmetrical expansion, no chest wall deformity HEART (CV/PV): Regular rate and rhythm without murmur, no peripheral edema, no JVD. ABDOMEN: Soft, non-distended, no guarding. MSK: Normal ROM, no swelling/deformity to bilateral UEs or LEs, moving all extremities without weakness, no cyanosis, spine midline without tenderness, normal curvature. NEURO: Mental Status AAOx4 - alert to person, place, time, events No facial droop, no forehead involvement. Motor: No focal weakness - strength 5/5 in bilateral UEs and LEs, proximal and distal, symmetric. Sensory: sensation intact to light touch globally. Gait normal: patient ambulated without ataxia into ED room. PSYCH: euthymic, cooperative, pleasant, appropriate speech Course Vital Signs Vital signs: Vital Signs Temperature 36.6 C 04/29/24 08:43 Pulse 91 H 04/29/24 08:43 Respiratory Rate 20 04/29/24 08:43 Blood Pressure 110/71 04/29/24 08:43 Pulse Oximetry 98 04/29/24 08:43 Temperature 36.6 C 04/29/24 08:43 Temperature Source Oral 04/29/24 08:43 Pulse 91 H 04/29/24 08:43 Respiratory Rate 20 04/29/24 08:43 Blood Pressure 110/71 04/29/24 08:43 Blood Pressure Position Sitting 04/29/24 08:43 Pulse Oximetry 98 04/29/24 08:43 Oxygen Delivery Method Room Air 04/29/24 08:43 Oxygen Flow Rate 0 04/29/24 08:43 Pain Level 2 04/29/24 08:43 Medical Decision Making This dictation utilizes [id number] dictation software and may contain unedit ed grammatical errors. 23 year-old female presents to ED today by POV/ambulating with a chief complaint of positive rapid antigen at-home Covid test, states her work of [employer] across the street is requiring a PCR test as they state at-home tests can have false positives, with onset one day ago. Quality described as generalized malaise, cough, no radiation to chest pain, respiratory distress, nausea/vomiting. Severity is described as mild. Palliating factors include nothing specific needed. Provoking factors include nothing specific. Events leading up to the incident/Associated Symptoms: Patient is vaccinated for Covid. Patients' medical history: Noncontributory, otherwise healthy. 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 Pertinent exam findings / vital signs include lungs CTA, nontoxic vitals, no respiratory distress. Differential / pathologies of concern include COVID-19. Diagnostic studies of: -Respiratory panel PCR swab, confirms COVID-positive. Interventions of: -None. ED Course/Assessment/Plan: 23-year-old otherwise healthy female presents from at home positive COVID test requesting a PCR for her job. Confirmed positive COVID-19, low risk infection vaccinated healthy individual with no respiratory distress, I did provide a work note for isolation for 5 days and vaccinated individual, stressed strict return criteria for any respiratory distress. Findings not consistent with hypoxic respiratory failure. Disposition of COVID-19. Patient verbalized understanding of the plan and return to ED criteria and engaged in shared decision making. Medical Records Medical records reviewed: Yes I reviewed the patient's medical records. Lab Data Lab results reviewed: Yes I reviewed the patient's lab results. Labs: Laboratory Tests Range/Units 04/29/24 08:42 COVID-19 Source Nasopharynx SARS-CoV-2 (PCR) (Negative) Positive A Influenza Type A (PCR) (Negative) Negative Influenza Type B (PCR) (Negative) Negative RSV (PCR) (Negative) Negative Quality:SDOH Health Related Social Needs: No Data to Display PFSH All Active Problems (Updated 04/29/24 @ 09:39 by IZABELA Escoto) COVID-19 (Acute) COVID-19 (Acute 03/09/21) Hypertrophic scar (Acute) Keloid (Acute) inside of left nare where nose ring was placed Vitamin D deficiency (Acute) 18.9 06/26 rx vit d 3 5000 units daily Routine child health exam (Acute 08/15/12) Learning problem (Acute 04/25/16) IEP Attention deficit hyperactivity disorder (Acute 08/15/12) Medical History Attention deficit hyperactivity disorder Oppositional disorder of childhood or adolescence Problems with learning IEP Surgical History Acute appendicitis Appendectomy (08/13/17) Family History Mother , elavil overdose Substance abuse Mental disorder Father Substance abuse Heart disease Neoplasm Grandparent Diabetes Hearing loss childhood Essential hypertension Heart disease Social History Smoking/Tobacco Use Status: Never Second Hand Exposure: No Smoking risk assessment performed?: Yes Alcohol Intake: never Drug use: Never Substance use type: does not use Household members: family Housing: apartment Education Level: high school Details: Just graduated at [employer], contemplating nursing school, wants to work Pets and animals: No Do you feel safe at home: Yes Do you feel safe in your relationship?: Yes
--- OUTSIDE RECORDS SUMMARY | 2024-04-29 09:04 | XMS_ITS | Encounter Summary ---
Author Organization [facility] Address [address] [place] [address] Care Team Providers Care Lumber Marker Name Role Phone Kp Arringtno MD Primary Care Provider Lucila kay Encounter Details Date Type Department Care Team (Late st Contact Info) Description 11/12/2023 Lab Requisition [facility] Pathology & Laboratory Medicine - [facility] [address], [place] [id number] Outr Resulting Lab, Provider Social History Tobacco Use Types Packs/Day Years Used Date Smoking Tobacco: Never Assessed Interpersonal Safety Answer Date Record ed Physically Hurt Never 11/11/2019 Verbally Threaten Not on file 11/11/2019 Comments Unknown Sex and Gender Information Value Date Recorded Sex Assigned at Not on file Legal Sex Female 17:52 EDT Gender Identity Not on file Sexual Orientation Not on file documented as of this encounter Plan of Treatment Not on file documented as of this encounter Procedures Procedure Name Priority Date/Time Associated Diagnosis Comments LYME AB Routine 11/11/2023 21:05 EDT documented in this encounter Results * LYME AB (11/11/2023 21:05 EDT) Lyme Ab Negative Negative 11/13/2023 10:24 EDT [facility] Blood VENOUS BLOOD / Unknown 11/11/2023 21:05 EDT 11/12/2023 15:49 EDT us Provider Outr Resulting Lab IMMUNOLOGY AND SEROL OGY ORDERABLES Final Result [facility] [address] [place] [address] documented in this encounter Visit Diagnoses Not on filedocumented in this encounter Care Teams Lumber Marker Relationship Specialty Start Date End Date Kp Arrington MD PCP - General 08/17/17 documented as of this encounter
--- OUTSIDE RECORDS SUMMARY | 2024-04-29 09:04 | XMS_ITS | Encounter Summary ---
Author Organization [facility] Address [address] [place] [address] Care Team Providers Care Three Dimensional Art Instructor Name Role Phone Unknown, Provider Primary Care Provider Unava ilable Encounter Details Date Type Department Care Team (Late st Contact Info) Description 08/13/2017 Results Only [facility] [phone] Vida Dawson MD [address] [place] [address] Social History Tobacco Use Types Packs/Day Years Used Date Smoking Tobacco: Never Assessed Comments Unknown Sex and Gender Information Value Date Recorded Sex Assigned at Not on file Legal Sex Female 17:52 EDT Gender Identity Not on file Sexual Orientation Not on file documented as of this encounter Plan of Treatment Not on file documented as of this encounter Procedures Procedure Name Priority Date/Time Associated Diagnosis Comments SURGICAL PATHOLOGY Routine 08/13/2017 17 :53 EDT documented in this encounter Results * SURGICAL PATHOLOGY (08/13/2017 17:53 EDT) Pathology Report: SURGICAL PATHOLOGY REPORT Reports generated via electronic interface contain original data; however they are lacking the format of the original report. Caution should be taken when reading/interpret ing unformatted reports. Name: ? BEBA MENESES ? Accession #: ? [id number] ? : ? 2000 (Age: 17) ??F ? Collect Date: ? 08/13/2017 ? Location: ? [facility] ? Receive Date: ? 08/14/2017 ? Provider: VIDA DAWSON MD Copy to: PADILLA GEORGE MD ? Final Pathologic Diagnosis: APPENDIX, APPENDECTOMY: - Acute transmural appendicitis and periappendicitis. Document reviewed and electronically signed by: HARLAN SEGOVIA MD Report ??Date: 08/17/2017 15:45 By the signature above, the attending physician certifies that he/she has personally conducted a gross and/or microscopic examination of the described specimens and rendered or confirmed the above diagnosis. Specimen(s) Received: Appendix Clinical History: Acute appendicitis Gross Description: ? Received in formalin labelled with proper patient identification (initials R, M) and appendix is a vermiform appendix (6.0 cm in length x 0.9 cm in diameter), with a moderate amount of attached mesoappendix. The proximal margin is stapled. ? The serosa is pale barlow-vines with scant fibrinoid exudate. The cut surface is barlow-white. The average wall thickness is 0.1 cm with no discernable perforation site. The lumen ranges from 0.1 cm to 0.5 cm in diameter and contains no fecalith. The proximal margin is inked blue. ? The section adjacent to the proximal stapled margin, two compliance representative dealer cross sections and one-half of the longitudinally bisected distal tip are submitted in 1. IZABELA Prado (ASCP) 08/15/2017 8:28 AM End of Report [facility] 08/13/2017 17:5 3 EDT 08/14/2017 17:53 EDT us Vida Dawson MD PATHOLOGY ORDERABLES Final Re sult [facility] [address] [place] [address] documented in this encounter Visit Diagnoses Not on filedocumented in this encounter Care Teams Three Dimensional Art Instructor Relationship Specialty Start Date End Date Unknown, Provider, PCP - General 08/14/17 08/16/17 documented as of this encounter
--- OUTSIDE RECORDS SUMMARY | 2024-04-29 09:04 | XMS_ITS | Encounter Summary ---
Author Organization [facility] Address [address] [place] [address] Care Team Providers Care Gis Coordinator Name Role Phone Kp Arrington MD Primary Care Provider Lucila kay Encounter Details Date Type Department Care Team (Late st Contact Info) Description 11/10/2023 Lab Requisition [facility] Pathology & Laboratory Medicine - [facility] [address] [place], [place] [id number] Outr Resulting Lab, Provider Social History Tobacco [...] Procedure Name Priority Date/Time Associated Diagnosis Comments SYPHILIS SEROLOGY Routine 11/10/2023 12: 27 EDT documented in this encounter Results * SYPHILIS SEROLOGY (11/10/2023 12:27 EDT) Syphilis Serology Negative Negative 11/13/2023 13:43 EDT [facility] Blood VENOUS BLOOD / Unknown 11/10/2023 12:27 EDT 11/10/2023 22:06 EDT us Provider Outr Resulting Lab IMMUNOLOGY AND SEROL OGY ORDERABLES Final Result [facility] [address] [place] [address] documented in this encounter Visit Diagnoses Not on filedocumented in this encounter Care Teams Gis Coordinator Relationship Specialty Start Date End Date Kp Arrington MD PCP - General 08/17/17 documented as of this encounter
--- OUTSIDE RECORDS SUMMARY | 2024-04-29 09:04 | XMS_ITS | Encounter Summary ---
Author Organization [facility] Address [address] [place] [address] Care Team Providers Care Senior Writer Name Role Phone Kp Arrington MD Primary Care Provider Lucila kay Encounter Details Date Type Department Care Team (Late st Contact Info) Description 11/10/2023 Lab Requisition [place] Pathology & Laboratory Medicine - [facility] [address] [place], [place] [id number] Outr Resulting Lab, Provider Social History Tobacco [...] Procedure Name Priority Date/Time Associated Diagnosis Comments HIV 1/2 ANTIGEN AND ANTIBODY, 4TH GENERATION Routine 11/10/2023 12:27 EDT documented in this encounter Results * HIV 1/2 ANTIGEN AND ANTIBODY, 4TH GENERATION (11/10/2023 12:27 EDT) HIV 1 and 2 Antibody/p24 Antigen, 4th Generation Negative Negative 11/12/2023 9:15 EDT [facility] Comment:If acute HIV-1 infec tion is suspected in a high risk patient, submit plasma specimen for HIV-1 RNA quantitation test. Blood VENOUS BLOOD / Unknown 11/10/2023 12:27 EDT 11/10/2023 21:44 EDT Narrative [facility] - 11/12/2023 9:15 EDT Fourth Generation assay performed on the [employer] XPT. us Provider Outr Resulting Lab IMMUNOLOGY AND SEROL OGY ORDERABLES Final Result [facility] [address] [place] [address] documented in this encounter Visit Diagnoses Not on filedocumented in this encounter Care Teams Senior Writer Relationship Specialty Start Date End Date Kp Arrington MD PCP - General 08/17/17 documented as of this encounter
--- OUTSIDE RECORDS SUMMARY | 2024-04-29 09:04 | XMS_ITS | Encounter Summary ---
Author Organization [facility] Address [address] [place] [address] Care Team Providers Care Foreign Broadcast Specialist Name Role Phone Unknown, Provider Primary Care Provider Unava ilable Encounter Details Date Type Department Care Team (Latest Contact Info) Description 08/14/2017 8:06 EDT - 08/14/2017 23:59 EDT Hospital Encounter [address] [address] Unknown, Provider, Discharge Disposition: Home or Self Care Social History Tobacco Use Types Packs/Day Years Used Date Smoking Tobacco: Never Assessed Comments Unknown Sex and Gender Information Value Date Recorded Sex Assigned at Not on file Legal Sex Female 17:52 EDT Gender Identity Not on file Sexual Orientation Not on file documented as of this encounter Discharge Disposition Disposition Code Departure Means Destination Home or Self Assisted documented in this encounter Plan of Treatment Not on file documented as of this encounter Visit Diagnoses Not on filedocumented in this encounter Care Teams Foreign Broadcast Specialist Relationship Specialty Start Date End Date Unknown, Provider, PCP - General 08/14/17 08/16/17 documented as of this encounter
--- OUTSIDE RECORDS SUMMARY | 2024-04-29 09:04 | XMS_ITS | Encounter Summary ---
Author Organization [facility] Address [address] [place] [address] Care Team Providers Care Casey Saw Operator Name Role Phone Kp Arrington MD Primary Care Provider Lucila kay Encounter Details Date Type Department Care Team (Late st Contact Info) Description 11/10/2023 Lab Requisition [facility] Pathology & Laboratory Medicine - [facility] [address] [place] [address] Outr Resulting Lab, Provider Social History Tobacco [...] Procedure Name Priority Date/Time Associated Diagnosis Comments CHLAMYDIA/N. GONORRHOEAE AMPLIFIED NUCLEIC ACID Routine 11/10/2023 12:40 EDT documented in this encounter Results * CHLAMYDIA/N. GONORRHOEAE AMPLIFIED NUCLEIC ACID (11/10/2023 12:40 EDT) Neisseria gonorrhoeae Result Negative Negative 11/13/2023 12:03 EDT [facility] Chlamydia trachomatis Result Negative Negative 11/13/2023 12:03 EDT [facility] Swab VAGINAL STRUCTURE / Unknown 11/10/2023 12:40 EDT 11/10/2023 21:41 EDT us Provider Outr Resulting Lab MICROBIOLOGY - GENER AL ORDERABLES Final Result [facility] [address] [place] [address] documented in this encounter Visit Diagnoses Not on filedocumented in this encounter Care Teams Casey Saw Operator Relationship Specialty Start Date End Date Kp Arrington MD PCP - General 08/17/17 documented as of this encounter
--- OUTSIDE RECORDS SUMMARY | 2024-04-29 09:04 | XMS_ITS | Encounter Summary ---
[place] [address] Care Team Providers Care Family Law Attorney Name Role Phone Murphy Gil MD, Mark Primary Care Provider [phone] Reason for Referral * Consultation (Routine) - Closed Specialty Diagnoses / Procedures Referred By Kika calixto Referred To Contact Maxillofacial Surgery Diagnoses Extraction of tooth [place] [address] [facility] Maxillo Surg [address] [place] [phone] Referral ID Status Reason Start Date Expiration Date V isits Requested Visits Authorized [id number] Closed Consult, Test & Treat 05/18/2022 05/18/2023 1 1 Encounter Details Date Type Department Care Team (Latest Contact Info) Description 05/18/2022 Transcribe Orders [place] [phone] [address] Wom[address] [place], [place] [phone] Extraction of tooth needed Social History Tobacco Use Types Packs/Day Years Used Date Smoking Tobacco: Never Assessed Sex and Gender Information Value Date Recorded Sex Assigned at Not on file Gender Identity Not on file Sexual Orientation Not on file documented as of this encounter Plan of Treatment Scheduled Referrals Name Type Priority Associated Diagnoses Order Schedule Referral to Maxillofacial Surgery Outpatient Referral Routine Extraction of tooth needed Ordered: 05/18/2022 documented as of this encounter Visit Diagnoses Diagnosis Extraction of tooth needed documented in this encounter Care Teams Family Law Attorney Relationship Specialty Start Date End Date Kp Arrington MD [address] [place] [address] [place] [address] PCP - General 03/02/10 04/18/24 documented as of this encounter
--- OUTSIDE RECORDS SUMMARY | 2024-04-29 09:04 | XMS_ITS | Clinical Summary ---
[place] [address] Care Team Providers Care Oil Field Equipment Mechanic Supervisor Name Role Phone None Primary Care Provider Unavailabl e Allergies No known active allergies Social History Tobacco Use Types Packs/Day Years Used Date Smoking Tobacco: Never Assessed Sex and Gender Information Value Date Recorded Sex Assigned at Not on file Gender Identity Not on file Sexual Orientation Not on file Plan of Treatment Health Maintenance Due Date Last Done Comments Chlamydia Screening 2017 HPV vaccine (1 - 3-dose series) 2017 HIV screen 2020 Hepatitis C Screening 2020 Hepatitis B vaccine (0-59 yrs) (1) 2021 Tetanus/Diphtheria/Pertussis Vaccines (1 - Tdap) 08/05 PAP Smear 08/06/2023 Covid-19 Vaccine ( - 2023- season) 2023 Influenza (Flu) vaccine (1 o f 1 - Influenza standard series) 12/10/2023 Care Teams Oil Field Equipment Mechanic Supervisor Relationship Specialty Start Date End Date None None PCP - General 04/19/24
--- OUTSIDE RECORDS SUMMARY | 2024-04-29 09:04 | XMS_ITS | Referral Summary ---
Author Organization [facility] Address [address] [place] [address] Care Team Providers Care Engraver Hand Soft Metals Name Role Phone Kp Arrington MD Primary Care Provider Lucila kay Social History Tobacco Use Types Packs/Day Years Used Date Smoking Tobacco: Never Assessed Interpersonal Safety Answer Date Record ed Physically Hurt Never 11/11/2019 Verbally Threaten Not on file 11/11/2019 Comments Unknown Sex and Gender Information Value Date Recorded Sex Assigned at Not on file Legal Sex Female 17:52 EDT Gender Identity Not on file Sexual Orientation Not on file Plan of Treatment Not on file Insurance MEDICAID [place] Care Teams Engraver Hand Soft Metals Relationship Specialty Start Date End Date Kp Arrington MD PCP - General 08/17/17
--- OUTSIDE RECORDS SUMMARY | 2024-04-29 09:04 | XMS_ITS | Clinical Summary ---
Author Organization [facility] Address [address] [place] [address] Care Team Providers Care Commissary Clerk Name Role Phone Kp Arrington MD Primary [...] Health Maintenance Due Date Last Done Comments Hepatitis C Screen 2000 Hepatitis B Vaccine (1 of 3 - 19+ 3-dose series) 08/05 COVID-19 Vaccine ( season) 2023 Insurance MEDICAID [place] Care Teams Commissary Clerk Relationship Specialty Start Date End Date Kp Arrington MD PCP - General 08/17/17
[2024-04-29 09:06] VITALS: PULSE 88; RESP 16; TEMP 36.4; O2SAT 98
[2024-04-29 09:31] LABS: Influenza A PCR Negative (Negative); Influenza B PCR Negative (Negative); RSV PCR Negative (Negative)
[2024-04-29 09:33] LABS: Source Nasopharynx
[2024-04-29 09:34] LABS: COVID-19 PCR Positive (Negative)
[2024-04-29 09:59] VITALS: BP 108/76; PULSE 82; RESP 16; TEMP 36.4; O2SAT 100
== END 2024-04-29 10:00 | disposition home or self-care (01) ==
PROVIDERS: Emergency Provider Physician Assistant
DX: U07.1 COVID-19 (principal); Z11.52 Encounter for screening for COVID-19
CPT/HCPCS: 87637

== ENCOUNTER 2024-05-27 22:13 | Outpatient (REF) | payer OTHER, SELFPAY | END 2024-05-27 22:14 | disposition home or self-care (01) | LOC: LBN 22:13 | PROVIDERS: Visit Provider Nurse Practitioner Family | DX: R30.0 Dysuria (principal) | CPT/HCPCS: 87086 ==

== ENCOUNTER 2024-07-03 22:46 | Outpatient (REF) | payer OTHER, SELFPAY ==
[2024-07-03 21:46] LABS: COVID-19 PCR Negative (Negative); Influenza A PCR Negative (Negative); Influenza B PCR Negative (Negative); RSV PCR Negative (Negative)
[2024-07-03 21:47] LABS: Source Nasopharynx
== END 2024-07-03 22:47 | disposition home or self-care (01) ==
LOC: LBN 22:46
PROVIDERS: Visit Provider Physician Assistant Medical
DX: J02.9 Acute pharyngitis, unspecified (principal); B34.9 Viral infection, unspecified
CPT/HCPCS: 87637; 87070

== ENCOUNTER 2024-07-11 22:19 | Outpatient (REF) | payer OTHER, SELFPAY ==
[2024-07-11 19:48] LABS: Abs Immature Grans 0.02 10^3/uL (0.0-0.06); Absolute Basophil Count 0.05 10^3/uL (0.0-0.2); Absolute Eosinophil Count 0.13 10^3/uL (0.0-0.7); Absolute Monocyte Count 0.42 10^3/uL (0.1-0.8); Absolute Neutrophil Count 4.93 10^3/uL (1.2-6.7); Basophils % 0.6 %; Eosinophils % 1.6 %; HCT 42.9 % (36.0-46.0); HGB 15.1 g/dL (11.2-15.7); Immature Grans % 0.2 %; Lymphocytes % 32.7 %; MCH 29.6 pg (27.0-33.0); MCHC 35.2 % (32.0-36.0); MCV 84 fL (80-95); MPV 10.1 fL (8.0-11.0); Monocytes % 5.1 %; Neutrophils % 59.8 %; Platelet Count 333 10^3/uL (130-400); RDW 11.8 % (11.7-14.6); RDW-SD 35.7 fL; WBC 8.25 10^3/uL (4.4-10.8)
[2024-07-11 20:17] LABS: TSH (W/Ref FT4) 1.58 uIU/mL (0.36-3.74)
== END 2024-07-11 22:20 | disposition home or self-care (01) ==
LOC: NCHCN 22:19
PROVIDERS: Visit Provider Nurse Practitioner Family
DX: R53.83 Other fatigue (principal)
CPT/HCPCS: 84443; 85025

== ENCOUNTER 2024-07-17 15:47 | Outpatient (REF) | payer OTHER, SELFPAY ==
--- NOTE | 2024-07-17 15:40 | PAPFT_PTH ---
PATIENT: Beba Izaguirre LOC: [facility] U#:[id number] AGE/SX: 23/F ROOM: RE07/17/[address]: Ya Dee NP : 2000 BED: DIS: 07/17/2024 SPEC #: [id number] RECD: 07/17/24 17:58 STATUS: KOBI REDigna #: [id number] ARTURO: 07/17/24 15:[address]: Ya Dee NP DEPT: [facility] Cytology RECD BY: Lesvia Cespedes ENTERED: 07/17/24 17:58 SP TYPE: PAPFT APRIL DR: Unknown,Unknown Tissues: 1 - CX/ENDOCX FOR PAP SMEARS Procedures: PAP THIN PREP/[facility] Screening Comments: [id number] (CHLAMYDIA/GC)
[2024-07-18 16:39] LABS: Chlamydia Result Negative (Negative); GC Result Negative (Negative)
== END 2024-07-17 15:48 | disposition home or self-care (01) ==
LOC: LBN 15:47
PROVIDERS: Visit Provider Nurse Practitioner Women's Health
DX: Z12.4 Encounter for screening for malignant neoplasm of cervix (principal); C44.92 Squamous cell carcinoma of skin, unspecified; B37.89 Other sites of candidiasis
CPT/HCPCS: 87491; 87591; 88142

== ENCOUNTER 2024-08-03 21:12 | Emergency (ER) | payer OTHER, SELFPAY ==
[2024-08-03 21:18] VITALS: BP 115/74; PULSE 95; RESP 20; TEMP 37; O2SAT 98
[2024-08-03 21:27] VITALS: BP 115/74; PULSE 95; RESP 20; TEMP 37; O2SAT 98
--- NOTE | 2024-08-03 21:28 | ED.GENADUL_ITS ---
Discharge Plan Disposition Patient Disposition: Home Condition: Stable Discharge Details Clinical Impression: Upper respiratory infection Primary Care Provider: Unknown,Unknown ED Provider: José Luis Du Home Meds and New Rx's Prescriptions: Continued Nexplanon 68 mg implant 1 implant SBD ONCE Rx Instructions: as a single dose Discharge Instructions Instructions: Cough, runny nose, and the common cold Additional Instructions: You were seen in the emergency department for your cold symptoms. You are on antibiotics for sinus infection, this will treat most respiratory bacterial infections as well I do suspect you have a virus like COVID the flu or RSV but you refused swab today. Taking a test a couple weeks ago does not negate the risk of acquiring any virus even while being treated for bacterial sinus infection each day that you are around other people that could possibly be sick. Your chest x-ray shows no pneumonia and your oxygen is 98% on room air, you have no increased heart rate and your blood pressure is normal indicating no severe infection or life threats. Please follow-up with your primary care provider, use the provided inhaler for symptomatic shortness of breath, please use therapeutic dosing of Tylenol (acetamenophen) & Advil (ibuprofen) in an alternating fashion as follows: Take 1000mg of Tylenol every 6 hours without missing doses- that is 4 times per day. [place] in between the Tylenol dosings, take 400-600mg of Advil also on a 6 hour schedule, that is also 4 times per day. The daily maximum dosing of Tylenol is 4000mg, and the daily maximum dosing of Advil is 2400mg. This is safe to do for weeks. Please note that some common cold medications & prescription pain medications may contain acetamenophen and you need to read OTC drug labels and factor that in to maximum daily dosings. Take [id number] cold medicines and decongestants like Mucinex. Please return for respiratory distress, chest pain, intractable nausea or vomiting, high fevers despite adequate Tylenol and ibuprofen dosing as above or other emergent concerns Stand Alone Forms: Work Release Discharge Data Discharge Date/Time-TO BE ENTERED AT DEPARTURE: 08/03/24 22:08 HPI General Date/Time Provider Initiated Documentation: 08/03/24 21:28 . HPI Narrative: 24 year-old female presents to ED today by POV/ambulating with a chief complaint of fevers at home, dry hacking cough with onset starting yesterday, recently started on Augmentin for sinus infection. Quality described as generalized cough and fatigue, no radiation to shortness of breath or respiratory distress, chest pain, intractable nausea or vomiting, diarrhea, abdominal pain, vocal changes, excessive drooling, neck swelling or stiffness. Severity is described as mild to moderate. Palliating factors include took Tylenol 90 minutes prior to arrival. Provoking factors include nothing specific. Patient not anticoagulated. Related Data Home Medications ?Medication ?Instructions ?Recorded ?Confirmed etonogestrel 68 mg subdermal 1 implant subdermal ONCE 11/19/19 08/03/24 implant (Nexplanon) Allergies Allergy/AdvReac Type Severity Reaction Status Date / Time atomoxetine HCl (From AdvReac Intermediate agressive Verified 08/03/24 21:23 Strattera) General Stated Complaint: RespSymp GABRIELLA: 4 Review of Systems All systems reviewed & are unremarkable except as noted in HPI and below Exam Narrative Exam Narrative: GENERAL APPEARANCE: Well-nourished, non-toxic, awake and alert, atraumatic, no acute distress. SKIN: Warm, pink, dry, intact, without rashes/lesions/ulcerations. HEAD: Normocephalic, atraumatic, normal hair distribution for gender/age. EYES: Normal conjunctiva, no exudates on lids/lashes. ENT: Nares patent, no circumoral cyanosis, no facial swelling NECK: Supple, trachea midline, painless cervical ROM. LUNGS/CHEST: Lungs CTA bilaterally, non-labored respirations, normal A/P diameter, symmetrical expansion, no chest wall deformity HEART (CV/PV): Regular rate and rhythm without murmur, no peripheral edema, no JVD. ABDOMEN: Soft, non-distended, no guarding. MSK: Normal ROM, no swelling/deformity to bilateral UEs or LEs, moving all extremities without weakness, no cyanosis, spine midline without tenderness, normal curvature. NEURO: Mental Status AAOx4 - alert to person, place, time, events No facial droop, no forehead involvement. Motor: No focal weakness - strength 5/5 in bilateral UEs and LEs, proximal and distal, symmetric. Sensory: sensation intact to light touch globally. Gait normal: patient ambulated without ataxia into ED room. PSYCH: euthymic, cooperative, pleasant, appropriate speech Course Vital Signs Vital signs: Vital Signs Temperature 37.0 C 08/03/24 21:18 Pulse 95 H 08/03/24 21:18 Respiratory Rate 20 08/03/24 21:18 Blood Pressure 115/74 08/03/24 21:18 Pulse Oximetry 98 08/03/24 21:18 Temperature 37.0 C 08/03/24 21:18 Pulse 95 H 08/03/24 21:18 Respiratory Rate 20 08/03/24 21:18 Blood Pressure 115/74 08/03/24 21:18 Pulse Oximetry 98 08/03/24 21:18 Oxygen Delivery Method Room Air 08/03/24 21:18 Oxygen Flow Rate 0 08/03/24 21:18 Pain Level 0 08/03/24 21:18 Medical Decision Making This dictation utilizes [id number] dictation software and may contain unedited grammatical errors. 24 year-old female presents to ED today by POV/ambulating with a chief complaint of fevers at home, dry hacking cough with onset starting yesterday, recently started on Augmentin for sinus infection. Quality described as generalized cough and fatigue, no radiation to shortness of breath or respiratory distress, chest pain, intractable nausea or vomiting, diarrhea, abdominal pain, vocal changes, excessive drooling, neck swelling or stiffness. Severity is described as mild to moderate. Palliating factors include took Tylenol 90 minutes prior to arrival. Provoking factors include nothing specific. Patients' medical history: Noncontributory. Family and social history: Noncontributory. Pertinent exam findings / vital signs include [ ]. Differential / pathologies of concern include [ ]. Diagnostic studies of: -CXR - no acute pathology seen. Interventions of: -Albuterol for symptomatic relief. ED Course/Assessment/Plan: 25-year-old female seen in the emergency department for 1 days onset of cough, has recently started treatment for sinus infection with Augmentin, with runny nose and cough and fevers at home I believe the patient probably has a viral syndrome but will rule out a pneumonia by chest x-ray, counseled her on albuterol for relief of symptomatic shortness of breath without hypoxia, taking adequate dosing of Tylenol and ibuprofen and returning for any acute emergent concerns or respiratory distress or other. Findings not consistent with hypoxic respiratory failure, sepsis, peritonsillar abscess or deep space infection. Disposition of Upper Respiratory Infection. Patient verbalized understanding of the plan and return to ED criteria and engaged in shared decision making. Medical Records Medical records reviewed: Yes I reviewed the patient's medical records. Imaging Data Radiologic Study: Attestation: I personally reviewed and interpreted this imaging study as follows: Imaging: X-Ray Radiologist's impression: Exam: XR Chest Exam date and time: 08/03/2024 9:49 PM Age: 23 years old Clinical indication: Cough TECHNIQUE: Imaging protocol: Radiologic exam of the chest. Views: 2 views. COMPARISON: CR XR CHEST 2V PA LATERAL 11/11/2023 10:12 PM FINDINGS: Lungs: No pulmonary consolidation is seen. Pleural spaces: No pleural effusion or pneumothorax is demonstrated. Heart/Mediastinum: The heart appears normal in size. Bones/joints: The visualized bony structures appear grossly intact. IMPRESSION: No active disease is seen in the chest. Dictated and Authenticated by: Mina Stanford MD. Quality:SDOH Health Related Social Needs: No Data to Display PFSH All Active Problems (Updated 08/03/24 @ 21:48 by IZABELA Escoto) Upper respiratory infection (Acute) COVID-19 (Acute) COVID-19 (Acute 03/09/21) Hypertrophic scar (Acute) Keloid (Acute) inside of left nare where nose ring was placed Vitamin D deficiency (Acute) 18.9 06/26 rx vit d 3 5000 units daily Routine child health exam (Acute 08/15/12) Learning problem (Acute 04/25/16) IEP Attention deficit hyperactivity disorder (Acute 08/15/12) Medical History (Updated 08/03/24 @ 21:48 by IZABELA Escoto) Encounter for surveillance of Nexplanon subdermal contraceptive Problems with learning IEP Attention deficit hyperactivity disorder Oppositional disorder of childhood or adolescence Surgical History Appendectomy (08/13/17) Acute appendicitis Family History Mother , elavil overdose Substance abuse Mental disorder Father Substance abuse Heart disease Neoplasm Grandparent Diabetes Hearing loss childhood Essential hypertension Heart disease Social History Smoking/Tobacco Use Status: Never Second Hand Exposure: No Smoking risk assessment performed?: Yes Alcohol Intake: current Drug use: Never Substance use type: does not use Household members: significant other Housing: apartment 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 Pets and animals: No Sexually active: Yes Do you think of yourself as: straight/heterosexual Current gender identity: female What is your relationship status?: living with partner Panel score (0-1 are the most socially isolated patients): 1 What type of physical activity do you participate in: regular exercise Seatbelt use: always Helmet use: Yes Do you feel safe at home: Yes Do you feel safe in your relationship?: Yes Female Reproductive History Menstrual Age of Menarche: 15 control method: implanted History History 0 Para Hx # Term Pregnancies Multiple births Hx # Pregnancies Ectopic pregnancies AB induced Hx Number of Living Children AB spontaneous
--- NOTE | 2024-08-03 21:30 | DI.RAD_ITS ---
Exam(s) XR CHEST 2V PA LATERAL EXAM: XR CHEST 2V PA LATERAL CLINICAL HISTORY: cough TECHNIQUE: 2D digital imaging was performed of the chest. Two images were obtained. PA and lateral views were obtained. COMPARISON: CR,XR XR CHEST 2V PA LATERAL from 11/11/2023 FINDINGS: MEDIASTINUM: Normal. HEART: Normal. PULMONARY VASCULATURE: Normal. LUNGS: Clear. PLEURAL SPACE: No pleural effusion or pneumothorax. BONE:Within normal limits for the patient's age. OTHER FINDINGS:Normal. IMPRESSION: No acute pulmonary findings. DATA REPOSITORY: RADIATION DOSE DELIVERED:
--- NOTE | 2024-08-03 22:00 | DI.VRAD_ITS ---
PROCEDURE INFORMATION: Exam: XR Chest Exam date and time: 08/03/2024 9:49 PM Age: 23 years old Clinical indication: Cough TECHNIQUE: Imaging protocol: Radiologic exam of the chest. Views: 2 views. COMPARISON: CR XR CHEST 2V PA LATERAL 11/11/2023 10:12 PM FINDINGS: Lungs: No pulmonary consolidation is seen. Pleural spaces: No pleural effusion or pneumothorax is demonstrated. Heart/Mediastinum: The heart appears normal in size. Bones/joints: The visualized bony structures appear grossly intact. IMPRESSION: No active disease is seen in the chest. Dictated and Authenticated by: Mina Stanford MD. Orderin Florian Ordonez MD
[2024-08-03] MEDS: Albuterol HFA 8 GM 60 PUFF INH IH (22:05)
== END 2024-08-03 22:08 | disposition home or self-care (01) ==
LOC: ER 21:36
PROVIDERS: Emergency Provider Physician Assistant
DX: J06.9 Acute upper respiratory infection, unspecified (principal)
CPT/HCPCS: 99283; 71046

== ENCOUNTER 2024-08-21 18:01 | Outpatient (REF) | payer OTHER, SELFPAY | END 2024-08-21 18:02 | disposition home or self-care (01) | LOC: LBN 18:01 | PROVIDERS: Visit Provider Physician Assistant Medical | DX: J02.9 Acute pharyngitis, unspecified (principal) | CPT/HCPCS: 87070 ==

== ENCOUNTER 2025-02-26 16:18 | Outpatient (REF) | payer OTHER, SELFPAY | END 2025-02-26 16:19 | disposition home or self-care (01) | LOC: LBN 16:18 | PROVIDERS: Visit Provider Nurse Practitioner Family | DX: R30.0 Dysuria (principal) | CPT/HCPCS: 87086 ==